=== PATIENT | female | born 1950 | race Caucasian/White ===

== ENCOUNTER 2016-09-27 09:02 | Day surgery (SDC) ==
[2015-04-12 11:50] VITALS: BMI 34.7
[2016-09-27] MEDS ORDERED: LIDOCAINE 1% 20 ML MDV ONE (09:35)
[2016-09-27] MEDS ORDERED: LIDOCAINE 1% 20 ML MDV ID ONE (09:35)
[2016-09-27] MEDS ORDERED: DIPRIVAN 20 ML VIAL IVP ONE (11:45)
[2016-09-27] MEDS ORDERED: VERSED ONE (11:45)
[2016-09-27 13:15] VITALS: BP 105/62; TEMP 98.3
--- NOTE | 2016-09-28 07:06 | OP ---
PROCEDURE: EGD (ESOPHAGOGASTRODUODENOSCOPY). ENDOSCOPIST: Mikaela FISH M.D. INDICATION: QUESTIONABLE HISTORY OF CARRINGTON'S. INSTRUMENT: [facility]-190. MEDICATION: PER ANESTHESIA. PROCEDURE: The patient was positioned for endoscopy. The oropharynx was sprayed with Cetacaine spray and the endoscope was advanced through the bite block into the esophagus and from there advanced to the duodenum. The duodenum was normal. The pylorus was patent. The antrum is normal. Retroflex exam reveals a hiatal hernia. The Z-line is regular without evidence of Carrington's. The esophagus is otherwise normal. PLAN: 1. Continue current medications. 2. Repeat endoscopy p.r.n. MTDD
== END 2016-09-27 13:06 | disposition home or self-care (01) ==
LOC: SURG 09:02
PROVIDERS: ATTEND Internal Medicine Gastroenterology
DX: Z87.19 Personal history of other diseases of the digestive system (principal); K44.9 Diaphragmatic hernia without obstruction or gangrene

== ENCOUNTER 2016-11-04 11:59 | Outpatient (CLI) ==
[2015-04-12 11:50] VITALS: BMI 34.7
[2016-11-04 12:39] LABS: FLU INTERNAL QC INTERNAL QC VALID; RAPID FLU A NEGATIVE (NEGATIVE); RAPID FLU B NEGATIVE (NEGATIVE)
--- NOTE | 2016-11-04 12:51 | DI ---
EXAM: Two views of the chest. History: Cough, flu-like symptoms Comparison: Chest radiograph 04/12/2015 Findings: Heart size is normal. No focal consolidation. No appreciable pleural fluid and no pneum othorax. No acute osseous abnormalities. Dextroscoliosis. Impression: No acute cardiopulmonary process.
== END 2016-11-04 12:00 | disposition home or self-care (01) ==
LOC: LAB 11:59
PROVIDERS: ATTEND Internal Medicine
DX: R05 Cough (principal); R68.89 Other general symptoms and signs
CPT/HCPCS: 87804

== ENCOUNTER 2017-04-26 14:24 | Outpatient (CLI) | payer OTHER ==
[2015-04-12 11:50] VITALS: BMI 34.7
[2017-04-26 14:39] LABS: BASOPHILS # (AUTO) 0.1 K/uL (0-0.2); EOSINOPHILS # (AUTO) 0.2 K/ul (0.0-0.7); EOSINOPHILS % (AUTO) 3.4 % (0.0-7.0); HEMOGLOBIN 15.4 g/dl (12.0-16.0); IMMATURE GRANULOCYTE % (AUTO) 0.3 % (0.0-5.0); LYMPHOCYTES # (AUTO) 2.1 K/uL (0.60-3.4); LYMPHOCYTES % (AUTO) 29.9 (10.0-50.0); MEAN CORPUSCULAR HEMOGLOBIN 31.9 pg (27.0-31.0); MEAN CORPUSCULAR VOLUME 91.1 fl (81.0-99.0); MONOCYTES # (AUTO) 0.6 K/uL (0.4-2.0); NEUTROPHILS # (AUTO) 3.9 K/ul (2.0-6.9); NEUTROPHILS % (AUTO) 57.4; PLATELET COUNT 231 10^3/uL (140-440); RED BLOOD COUNT 4.83 10^6/ul (4.20-5.40); WHITE BLOOD COUNT 6.86 K/ul (4.6-10.2)
[2017-04-26 15:24] LABS: ALBUMIN 4.5 g/dL (3.4-5.0); ALBUMIN/GLOBULIN RATIO 1.41; ANION GAP 14.9; BILIRUBIN,TOTAL 0.57 mg/dL (0.00-1.20); BUN/CREATININE RATIO 16.88; CALCIUM 10.3 mg/dL (8.2-10.2); CHOL/HDL RATIO 2.8 (4.5-5.5); CREATININE 0.77 mg/dL (0.60-1.30); POTASSIUM 3.9 mmol/L (3.5-5.10); TOTAL PROTEIN 7.7 g/dL (5.8-8.1)
== END 2017-04-26 14:25 | disposition home or self-care (01) ==
LOC: LAB 14:24
PROVIDERS: ATTEND Emergency Medicine
DX: E78.5 Hyperlipidemia, unspecified (principal); I10 Essential (primary) hypertension
CPT/HCPCS: 36415; 80053; 80061; 84443; 85025

== ENCOUNTER 2017-05-06 10:44 | Outpatient (CLI) ==
[2015-04-12 11:50] VITALS: BMI 34.7
--- NOTE | 2017-05-06 12:15 | MAMMO ---
EXAM: Digital screening mammogram HISTORY: Screening COMPARISON: 03/19/2016 FINDINGS: Digital MLO and CC views of the right and left breast were performed. Computer aided de tection was utilized. There are scattered fibroglandular densities. There is no evidence for mass, asymmetry, distortion, or suspicious calcifications in either breast. IMPRESSION: 1. No evidence of malignancy in the right or left breast. 2. Annual screening mammogram is recommended in one year. BIRADS category 1, negative examination
== END 2017-05-06 10:45 | disposition home or self-care (01) ==
LOC: RAD 10:44
PROVIDERS: ATTEND Emergency Medicine
DX: Z12.31 Encounter for screening mammogram for malignant neoplasm of breast (principal)
CPT/HCPCS: 77067

== ENCOUNTER 2017-07-31 20:57 | Inpatient (IN) ==
[2017-07-31] MEDS ORDERED: NITROSTAT SL PRN (23:02)
[2017-07-31] MEDS ORDERED: VISTARIL INJ IM PRN (23:02)
[2017-07-31] MEDS ORDERED: ATROPINE SULFATE PFS IVP PRN (23:02)
[2017-07-31] MEDS ORDERED: TYLENOL PO PRN (23:02)
[2017-07-31] MEDS ORDERED: MORPHINE 4 MG/ML VIAL IVP PRN (23:02)
[2017-07-31] MEDS ORDERED: ZOFRAN TAB PO PRN (23:08)
[2017-07-31 23:47] LABS: BASOPHILS % (AUTO) 0.6 % (0.0-3.0); EOSINOPHILS % (AUTO) 0.6 % (0.0-7.0); HEMATOCRIT 38.4 % (37.0-47.0); HEMOGLOBIN 13.4 g/dl (12.0-16.0); IMMATURE GRANULOCYTE % (AUTO) 0.3 % (0.0-5.0); LYMPHOCYTES % (AUTO) 14.9 (10.0-50.0); MEAN CORPUSCULAR HEMOGLOBIN 31.5 pg (27.0-31.0); MEAN CORPUSCULAR HGB CONC 34.9 (31.8-35.4); MEAN CORPUSCULAR VOLUME 90.4 fl (81.0-99.0); MONOCYTES # (AUTO) 0.4 K/uL (0.4-2.0); MONOCYTES % (AUTO) 5.9 (0-10); NEUTROPHILS # (AUTO) 5.4 K/ul (2.0-6.9); NEUTROPHILS % (AUTO) 77.7; PLATELET COUNT 169 10^3/uL (140-440); RED BLOOD COUNT 4.25 10^6/ul (4.20-5.40); WHITE BLOOD COUNT 6.96 K/ul (4.6-10.2)
[2017-08-01 00:04] VITALS: BMI 33.5
[2017-08-01 00:14] LABS: ALANINE AMINOTRANSFERASE 11 U/L (12-78); ALBUMIN 3.4 g/dL (3.4-5.0); ALKALINE PHOSPHATASE 61 U/L (53-141); AMYLASE 34 U/L (25-115); ANION GAP 14.5; ASPARTATE AMINO TRANSFERASE 17 U/L (15-37); BILIRUBIN,TOTAL 0.67 mg/dL (0.00-1.20); BLOOD UREA NITROGEN 14 mg/dL (7-18); BUN/CREATININE RATIO 18.91; CARBON DIOXIDE 23 mmol/L (23-31); CHLORIDE 107 mmol/L (98-107); CREATINE KINASE 62 U/L; CREATININE 0.74 mg/dL (0.60-1.30); GLUCOSE 90 mg/dL (82-115); LIPASE 16 U/L (8-78); MYOGLOBIN 42 ng/ml; POTASSIUM 3.5 mmol/L (3.5-5.10); SODIUM 141 mmol/L (136-145); TOTAL PROTEIN 6.5 g/dL (5.8-8.1)
[2017-08-01] MEDS ORDERED: NON-FORMULARY MEDICATION (Cholecalciferol (Vitamin D3) [Vitamin D3] 400 UNIT) PO SCH (01:00)
[2017-08-01 01:05] LABS: FLU INTERNAL QC INTERNAL QC VALID; RAPID FLU A NEGATIVE (NEGATIVE); RAPID FLU B NEGATIVE (NEGATIVE)
[2017-08-01] MEDS: SODIUM CHLORIDE 1,000 ML IV SCH (03:14)
[2017-08-01] MEDS: PRILOSEC PO SCH (06:04)
[2017-08-01 07:32] LABS: BILIRUBIN,URINE 1+ (NEGATIVE); KETONES,URINE Trace (NEGATIVE); LEUKOCYTE ESTERASE ,URINE Trace (NEGATIVE); NITRITE,URINE Negative (NEGATIVE); PH,URINE 5.5 (5-9); PROTEIN,URINE Negative (NEGATIVE); URINE, BLOOD Negative (NEGATIVE)
[2017-08-01 07:33] LABS: ADD URINE MICROSCOPIC YES
[2017-08-01 07:36] LABS: BACTERIA,URINE 1+ (NOT PRESENT)
--- NOTE | 2017-08-01 07:50 | DI ---
Exam: Single x-ray of the chest. Comparison: 11/04/2016. Reason for exam: Congestion. FINDINGS: No pneumothorax, pleural effusion, or focal consolidation. The cardiac silhouette is unch anged. Degenerative disease is seen in both shoulders. Impression: No acute cardiopulmonary process.
[2017-08-01] MEDS ORDERED: ASPIRIN EC PO SCH (08:00)
[2017-08-01 08:32] LABS: CREATINE KINASE 54 U/L; MYOGLOBIN 49 ng/ml
[2017-08-01] MEDS ORDERED: HYDROCHLOROTHIAZIDE PO SCH ×21 (09:00)
[2017-08-01] MEDS ORDERED: COZAAR PO SCH (09:00)
[2017-08-01] MEDS: VITAMIN D PO SCH (09:15)
[2017-08-01] MEDS: NORCO 7.5-325 PO SCH ×2 (09:15→20:23)
[2017-08-01] MEDS: ASPIRIN CHEWABLE PO SCH (09:15)
[2017-08-01] MEDS: COREG PO SCH ×2 (09:16→16:55)
[2017-08-01] MEDS: COZAAR PO SCH (09:16)
[2017-08-01] MEDS: HYDROCHLOROTHIAZIDE PO SCH (09:16)
[2017-08-01] MEDS: NORVASC PO SCH (09:16)
--- NOTE | 2017-08-01 09:49 | CT ---
EXAM: CT ABDOMEN AND PELVIS HISTORY: Abdominal pain, vomiting. History of cholecystectomy, appendectomy and hysterectomy. TECHNIQUE: CT abdomen and pelvis without intravenous contrast. Images were reconstructed using 5 mm section thickness. Reformations were prepared. COMPARISON: 04/12/2015 FINDINGS: Diagnostic limitations exist without including contrast enhanced images. No focal hepatic or splenic lesions identified. Gallbladder is absent. Pancreas and adrenal glands are within normal limits. No hydronephrosis or nephrolithiasis. Moderate atherosclerotic disease. No aneurysmal caliber of th e aorta. Scattered mesenteric lymph nodes are nonspecific, slightly more prominent than previously s een. Stomach is unremarkable. Normal bowel gas pattern. Urinary bladder appears normal. No uterus is see n. No ascites or inflammatory infiltration of the abdominal fat. There is fatty umbilical hernia with transverse neck of about 1.1 cm unchanged from previous exam and likely of no current clinical significance. Patient has underwent previous left hip arthroplasty. Moderate degenerative facet disease of the lower spine. Scoliosis is stable. Lung bases are free of acute infiltrate. No pneumoperitoneum. IMPRESSION: 1. Normal bowel gas pattern. No obvious acute intra-abdominal or pelvic abnormality. 2. Nonspecific mesenteric lymph nodes slightly more prominent than previously seen. 3. Moderate atherosclerotic disease.
[2017-08-01] MEDS ORDERED: CRESTOR PO SCH (21:00)
[2017-08-02] MEDS: SODIUM CHLORIDE 1,000 ML IV SCH (01:04)
[2017-08-02] MEDS: PRILOSEC PO SCH (05:33)
[2017-08-02] MEDS: ASPIRIN CHEWABLE PO SCH (08:39)
[2017-08-02] MEDS: COZAAR PO SCH (08:40)
[2017-08-02] MEDS: NORVASC PO SCH (08:40)
[2017-08-02] MEDS: VITAMIN D PO SCH (08:40)
[2017-08-02] MEDS: HYDROCHLOROTHIAZIDE PO SCH (08:41)
[2017-08-02] MEDS: COREG PO SCH (08:41)
[2017-08-02] MEDS: NORCO 7.5-325 PO SCH (08:42)
[2017-08-02 10:56] VITALS: BP 106/60; TEMP 97.9
--- NOTE | 2017-08-02 14:40 | HP ---
DATE OF SERVICE: 07/31/17 CHIEF COMPLAINT: Nausea and vomiting. HISTORY OF PRESENT ILLNESS: This is a 67-year-old female who has been having nausea and vomiting for 3 to 4 days. Vomiting all food material, whatever she is eating and water. No bile, no blood. She started having abdominal cramps. Did use Zofran as outpatient which did not help. As her cramping and weakness is getting worse, the patient was admitted directly to the hospital for dehydration and IV fluids. PAST MEDICAL HISTORY: Hypertension Dyslipidemia Anxiety Osteoarthritis DJD spine Depression PAST SURGICAL HISTORY: Hysterectomy at age of 21 Joint replacement left knee and hip REVIEW OF SYSTEMS: CONSTITUTIONAL: Weakness, tiredness. No night sweats. No fatigue, malaise, lethargy. No fever or chills. HEENT: Eyes: No visual changes. No eye pain. No eye discharge. ENT: No runny nose. No epistaxis. No sinus pain. No sore throat. No odynophagia. No ear pain. No congestion. RESPIRATORY: No cough, no congestion. No hemoptysis. No shortness of breath. CARDIOVASCULAR: No angina symptoms. No CHF symptoms. No atypical chest pain for CAD. No palpitations. No orthopnea. GASTROINTESTINAL: Nausea, vomiting and abdominal pain. No diarrhea or constipation. No hematemesis. No hematochezia. GENITOURINARY: No urgency. No frequency. No dysuria. No hematuria. No obstructive symptoms. No discharge. No pain. No significant abnormal bleeding. MUSCULOSKELETAL: No musculoskeletal pain. No joint swelling. No arthritis. NEUROLOGICAL: No headache. No neck pain. No syncope. No seizures. No dizziness. PSYCHIATRIC: Not anxious. No depression. No suicidal thoughts. No homicidal thoughts. SKIN: No rash. No lesions. No wounds. ENDOCRINE: No unexplained weight loss. No weight gain. HEMATOLOGIC/LYMPHATIC: No anemia. No purpura. No petechiae. No prolonged or excessive bleeding. No palpable lymph nodes. PERSONAL/FAMILY/SOCIAL HISTORY: , lives with . Has adopted daughter with him. Family history is significant for bladder cancer. MEDICATIONS: (HOME) Prilosec Aspirin Losartan Vitamin D3 Coreg Rosuvastatin Hydrochlorothiazide Amlodipine Hydrocodone ALLERGIES: TYLENOL, HYDROCODONE PHYSICAL EXAMINATION: VITAL SIGNS: BP 133/80, respiratory rate 16, heart rate 111, temperature 100.2. HEENT: Head normocephalic, atraumatic. Eyes: Extraocular muscles are intact. Pupils are equal, round and reactive to light and accommodation. Ears: No lesions. Nose appeared normal. Throat: No exudate or erythema. Mucosa dry. Pallor positive. No icterus. NECK: Supple. No JVD, no carotid bruit. No lymphadenopathy or thyromegaly. LUNGS: Clear to auscultation. Percussion note normal. Chest symmetrical. HEART: S1, S2, no S3. No murmurs. No cyanosis or clubbing. No ascites. Pulses: Dorsalis pedis and posterior tibial pulses +1 to +2 both sides. ABDOMEN: Discomfort all over. Hyperactive bowel sounds No CVA tenderness. No mass felt. EXTREMITIES: No edema. Full range of motion of all extremities, equal. NEUROLOGIC: No focal deficit. Cranial nerves II through XII are grossly intact. No headache, no double vision or headache. SKIN: Not dry. Intact. Turgor - normal. LYMPHATIC: No palpable lymph nodes/no lymphedema. MUSCULOSKELETAL: Normal joints with no swelling. Muscle tone is normal. LABS: Sodium 141, potassium 3.5, chloride 107, bicarb 23, BUN 14, creatinine 0.74. Amylase, lipase normal. Cardiac enzymes and troponin is normal. White count 6.96 , hemoglobin 13.4, hematocrit 38.4, platelet count 169. Serology negative for flu. Urine positive for leukocyte esterase trace, nitrate negative. CT of abdomen and pelvis showed mesenteric lymph nodes enlarged, questionable mesenteric adenitis. ASVD. ASSESSMENT: 1. ACUTE GASTROENTERITIS MOST LIKELY MESENTERIC ADENITIS 2. HYPERTENSION 3. DYSLIPIDEMIA 4. ASVD 5. OSTEOARTHRITIS 6. DJD SPINE PLAN: 1. Admit patient to regular floor 2. CBC, CMP today and daily 3. Cardiac enzymes and troponin 4. IV fluid 5. Zofran p.r.n. 6. Morphine for the pain TIME SPENT: More than 70 minutes. MTDD
--- NOTE | 2017-08-02 14:46 | PN ---
DATE OF SERVICE: 08/01/17 SUBJECTIVE: The patient with nausea and vomiting. She is receiving IV fluids and Zofran. She feels some better. She still has abdominal cramping. No diarrhea. She had 100.2 fever yesterday. REVIEW OF SYSTEMS: CONSTITUTIONAL: No fever, no chills. HEENT: Normal. ENDOCRINE: No weight gain, no weight loss. CVS: No angina symptoms. No CHF symptoms. No palpitations. No atypical chest pain for CAD. No shortness of breath. No PND, no orthopnea. RESPIRATORY: No cough, no hemoptysis. GI: Abdominal cramping. No nausea, no vomiting. : No hematuria. No polyuria. MUSCULOSKELETAL:. No joint swelling. PSYCHIATRIC: Not anxious. No depression. No suicidal thoughts. No homicidal thoughts. SKIN: Intact. No rash. PHYSICAL EXAMINATION: V/S: BP 102/64, respiratory rate 20, heart rate 66, temperature 97.1, saturation 97. HEENT: Normocephalic, atraumatic. Mucosa dry. NECK: Supple. No JVD, no carotid bruit. No lymphadenopathy. LUNGS: Clear to auscultation. No rales or rhonchi. HEART: S1, S2 normal. No S3. No murmur, gallop or regurgitation. ABDOMEN: Discomfort all over. Bowel sounds active. No rigidity. No rebound or guarding. No CVA tenderness. EXTREMITIES: No clubbing, cyanosis or pedal edema. MUSCULOSKELETAL: No joint swelling. NEUROLOGIC: Awake, alert, oriented times three. No focal deficit. LYMPHATIC: No lymph nodes palpable. SKIN: Intact. LABS: Sodium 141, potassium 3.5, chloride 107, bicarb 23, BUN 14, creatinine 0.74. White count 6.96, hemoglobin 13.4, hematocrit 38.4, platelet count 169. ASSESSMENT: 1. ACUTE GASTROENTERITIS 2. DEHYDRATION 3. HYPERTENSION 4. DYSLIPIDEMIA 5. ASVD 6. DEPRESSION 7. DJD SPINE PLAN: 1. IV fluids 2. Zofran 3. Morphine for pain 4. Will follow with the patient in daily rounds TIME SPENT: More than 35 minutes today [id number]
--- NOTE | 2017-08-08 10:48 | DS ---
DATE OF SERVICE: 08/02/17 FINAL DIAGNOSIS: 1. Acute gastroenteritis 2. Dehydration 3. Hypertension 4. Dyslipidemia 5. Osteoarthritis 6. DJD spine 7. ASVD on the CAT scan 8. Hysterectomy 9. section 10.Hip surgery as a child 11.Left total hip replacement DISCHARGE INSTRUCTIONS: Discharge the patient home. Continue the rest of the home medication. MEDICATIONS AT DISCHARGE: Norvasc Aspirin Coreg Vitamin D3 Hydrochlorothiazide Hydrocodone Losartan Omeprazole Crestor NEW PRESCRIPTIONS: Zofran PRN script patient has already DIET INSTRUCTIONS: Cardiac and healthy Increase hydration ACTIVITY: As much as tolerated SMOKING: Former smoker DISEASE SPECIFIC EDUCATION: Dehydration Viral gastroenteritis been discussed and verbalized understanding HOSPITAL COURSE: Carly Wade is a 67 year old female who was taking of the care of the daughter who already admitted to the hospital with small bowel obstruction. Started having the nausea and vomiting. The patient was given outpatient Zofran started taking which did not help her. Kept vomiting and having some abdominal pain. At that time the patient was admitted directly to the hospital started on the IV fluids and CT scan of abdomen done which did show some mesenteric adenitis otherwise no acute findings. With IV fluids and NPO the patient started feeling better. IV Zofran did help her. Next day the patient was started on the clear liquids and did tolerate it will. Advised the diet and did not have any problems. At that time the patient was discharged home. TIME SPENT: MORE THAN 65 MINUTES MTDD
== END 2017-08-02 14:20 | disposition home or self-care (01) | DRG 392 ==
LOC: OUTPT 20:57 → MEDSURG A 21:10
PROVIDERS: ADMIT Emergency Medicine; ATTEND Emergency Medicine
DX: K52.9 Noninfective gastroenteritis and colitis, unspecified (principal); Q21.1 Atrial septal defect; E86.0 Dehydration; I10 Essential (primary) hypertension; E78.5 Hyperlipidemia, unspecified; M19.90 Unspecified osteoarthritis, unspecified site; M47.9 Spondylosis, unspecified; I88.0 Nonspecific mesenteric lymphadenitis; R50.9 Fever, unspecified; F32.9 Major depressive disorder, single episode, unspecified; Z90.710 Acquired absence of both cervix and uterus; Z79.899 Other long term (current) drug therapy
CPT/HCPCS: 36415; 80053; 81001; 82150; 82550; 83690; 83874; 84484; 85025; 87086; 87804; 93005; 93010

== ENCOUNTER 2017-11-04 11:25 | Outpatient (CLI) | END 2017-11-04 11:26 | disposition home or self-care (01) | LOC: RHC-LAB 11:25 | PROVIDERS: ATTEND Emergency Medicine | DX: E78.5 Hyperlipidemia, unspecified (principal); I10 Essential (primary) hypertension | CPT/HCPCS: 36415; 80053; 80061; 84443; 85025 ==

== ENCOUNTER 2018-05-15 10:11 | Day surgery (SDC) ==
[2018-05-15] MEDS ORDERED: LIDOCAINE 1% 20 ML MDV ID STA (10:54)
[2018-05-15] MEDS ORDERED: DIPRIVAN 20 ML VIAL IVP ONE (12:35)
[2018-05-15] MEDS ORDERED: VERSED ONE (12:35)
[2018-05-15 14:00] VITALS: BP 125/78
[2018-05-15 17:20] VITALS: TEMP 98.5
--- NOTE | 2018-05-16 09:18 | OP ---
PROCEDURE: COLONOSCOPY TO THE CECUM WITH SNARE POLYPECTOMY. ENDOSCOPIST: Mikaela FISH M.D. INDICATION: HISTORY OF POLYPS INSTRUMENT: [facility]190. MEDICATION: PER ANESTHESIA. PROCEDURE: The patient was positioned for colonoscopy. The digital rectal exam was negative. The colonoscope was inserted through the anus and advanced to the cecum. The cecum was identified using the ileocecal valve and the appendiceal orifice as landmarks. The scope was slowly withdrawn through an adequately prepped colon. [place] Bowel Prep score 2+2+3=7. Small polyp removed at the ascending colon, hepatic flexure times 2, 40cm all were 5cm in size. All removed using snare cautery. Retroflex exam was otherwise normal. The patient tolerated the procedure without immediate complication. Withdraw time 10 minutes and 26 seconds. PLAN: 1. Repeat colonoscopy in 3 years for surveillance CC: Corina LORENZO
== END 2018-05-15 13:50 | disposition home or self-care (01) ==
LOC: SURG 10:11
PROVIDERS: ATTEND Internal Medicine Gastroenterology
DX: Z86.010 Personal history of colon polyps (principal); D12.2 Benign neoplasm of ascending colon; D12.3 Benign neoplasm of transverse colon

== ENCOUNTER 2018-06-20 08:55 | Outpatient (CLI) | payer OTHER ==
--- NOTE | 2018-06-21 09:55 | MAMMO ---
EXAM: Bilateral digital screening mammogram (2-D and 3-D) History: Screening Comparison: Bilateral mammogram 05/06/2017 Findings: MLO and CC views of bilateral breasts demonstrate scattered fibroglandular breast parenchy ma. CAD was reviewed by the radiologist. Tomosynthesis was performed. Benign lymph nodes again seen within each breast. There are no dominant masses and no suspicious microcalcifications. Impression: Benign stable mammogram. Recommend followup routine screening mammography in 1 year. BIRADS 2
== END 2018-06-20 08:56 | disposition home or self-care (01) ==
LOC: RAD 08:55
PROVIDERS: ATTEND Nurse Practitioner Family
DX: Z12.31 Encounter for screening mammogram for malignant neoplasm of breast (principal)
CPT/HCPCS: 77067